=== PATIENT | female | born 1955 | race Caucasian/White ===

== ENCOUNTER 2017-11-17 04:23 | Emergency (ER) | END 2017-11-17 07:00 | disposition home or self-care (01) ==

== ENCOUNTER 2018-07-21 23:48 | Emergency (ER) | payer BC ==
[~2018-07-21] VITALS: Ht 154.9 cm; Wt 82.0 kg
[~2018-07-21 23:48] MED LIST: ASPI-535 PO; ATOR10TA65 PO; CLON0.5T14 PO; ERGO500013 PO; LOSA1TAB25 PO; METF-849 PO; METO-336 PO; ZOLP10TA5 PO
[2018-07-21 23:51] VITALS: Ht 154.9 cm; Wt 82.0 kg
[2018-07-22] MEDS ORDERED: ONDANSETRON 4 MG INJ IV STA (02:04)
--- NOTE | 2018-07-22 02:04 | ERD ---
ER Documentation Chief Complaint Chief Complaint BIB FAMILY HIGH BP AT HOME HPI The patient is a 63-year-old female, presenting to the ER because she took her blood pressure at 11 p.m., it was 180/107, she then took an additional dose of losartan prior to coming to emergency department. She felt nauseated and vomited once of mostly mucus, denies hematemesis/hematochezia. She denies fever, chills, neck pain, chest pain, dyspnea, complains of dysuria, denies diarrhea. She does not smoke nor drink Past medical history: Cholelithiasis, hypertension, diabetes mellitus Past surgical history: None ROS All systems reviewed and are negative except as per history of present illness. Medications Home Meds Active Scripts Ibuprofen* (Motrin*) 600 Mg Tab, 600 MG PO Q6H PRN for PAIN AND OR ELEVATED TEMP, #20 TAB Prov:MONTY MOCTEZUMA MD 07/22/18 Cephalexin* (Keflex*) 500 Mg Capsule, 500 MG PO QID for 7 Days, CAP Prov:MONTY MOCTEZUMA MD 07/22/18 Reported Medications Losartan-Hydrochlorothiazide (Losartan-HCTZ) 100-25 Mg Tab, 1 TAB PO DAILY, TAB 11/17/17 Atorvastatin Calcium (Atorvastatin Calcium) 10 Mg Tablet, 10 MG PO QHS, #30 TAB 11/17/17 Zolpidem Tartrate* (Zolpidem Tartrate*) 10 Mg Tablet, 10 MG PO QHS PRN for INSOMNIA, #30 TAB 11/17/17 Aspirin Ec (Aspir 81) 81 Mg Tablet.dr, 81 MG PO DAILY, #30 TAB 11/17/17 Metoprolol Succinate* (Toprol XL*) 100 Mg Tab.sr.24h, 100 MG PO DAILY, #30 TAB 11/17/17 Metformin* (Glucophage*) 500 Mg Tab, 500 MG PO WITH BREAKFAST DINNE, #30 TAB 11/17/17 Clonazepam* (Clonazepam*) 0.5 Mg Tablet, 0.5 MG PO DAILY, TAB 11/17/17 Ergocalciferol (Vitamin D2) (VITAMIN D2) 50,000 Unit Capsule, 38533 UNIT PO, CAP 11/17/17 Allergies Allergies: Coded Allergies: No Known Allergy (Unverified , 07/21/18) PMhx/Soc History of Surgery: No Anesthesia Reaction: No Hx Neurological Disorder: No Hx Respiratory Disorders: No Hx Cardiac Disorders: Yes (HTN) Hx Psychiatric Problems: No Hx Miscellaneous Medical Probl: Yes (DM, GALLSTONES) Hx Alcohol Use: No Hx Substance Use: No Hx Tobacco Use: No Smoking Status: Never smoker Physical Exam Vitals Vital Signs Date Temp Pulse Resp B/P (MAP) Pulse Ox O2 O2 Flow FiO2 Time Delivery Rate 07/22/18 67 15 124/74 96 Room Air 04:27 (91) 07/22/18 77 20 141/84 98 Room Air 01:53 (103) 07/22/18 171/87 00:29 (115) 149/86 (107) 07/21/18 98.4 83 20 137/86 95 23:51 (103) Physical Exam Const: No acute distress. Head: Atraumatic. Eyes: Normal Conjunctiva. ENT: Normal External Ears, Nose and Mouth. Neck: Full range of motion. No meningismus. Resp: Clear to auscultation bilaterally. Cardio: Regular rate and rhythm. Abd: Soft, non distended, normal bowel sounds, non tender. Skin: No petechiae or rashes. Back: No midline or flank tenderness. Ext: No cyanosis, or edema. Neur: Awake and alert. No focal deficit Psych: Normal Mood and Affect. Result Diagram: 07/22/184 07/22/18213 Results 24 hrs Laboratory Tests Test 07/22/18 02:14 07/22/18 02:30 White Blood Count 16.6 10^3/ul Red Blood Count 4.61 10^6/ul Hemoglobin 13.7 g/dl Hematocrit 39.9 % Mean Corpuscular Volume 86.6 fl Mean Corpuscular Hemoglobin 29.7 pg Mean Corpuscular Hemoglobin Concent 34.3 g/dl Red Cell Distribution Width 13.8 % Platelet Count 146 10^3/UL Mean Platelet Volume 10.0 fl Immature Granulocytes % 0.500 % Neutrophils % 87.6 % Lymphocytes % 6.2 % Monocytes % 5.2 % Eosinophils % 0.3 % Basophils % 0.2 % Nucleated Red Blood Cells % 0.0 /100WBC Immature Granulocytes # 0.080 10^3/ul Neutrophils # 14.5 10^3/ul Lymphocytes # 1.0 10^3/ul Monocytes # 0.9 10^3/ul Eosinophils # 0.1 10^3/ul Basophils # 0.0 10^3/ul Nucleated Red Blood Cells # 0.0 10^3/ul Sodium Level 142 mmol/L Potassium Level 4.3 mmol/L Chloride Level 104 mmol/L Carbon Dioxide Level 25 mmol/L Anion Gap 13 Blood Urea Nitrogen 23 mg/dl Creatinine 0.57 mg/dl Est Glomerular Filtrat Rate mL/min > 60 mL/min Glucose Level 242 mg/dl Calcium Level 9.4 mg/dl Total Bilirubin 0.6 mg/dl Direct Bilirubin 0.00 mg/dl Indirect Bilirubin 0.6 mg/dl Aspartate Amino Transf (AST/SGOT) 97 IU/L Alanine Aminotransferase (ALT/SGPT) 130 IU/L Alkaline Phosphatase 80 IU/L Total Protein 7.8 g/dl Albumin 4.3 g/dl Globulin 3.50 g/dl Albumin/Globulin Ratio 1.22 Lipase 59 U/L Bedside Urine pH (LAB) 6.0 Bedside Urine Protein (LAB) 2+ Bedside Urine Glucose (UA) Negative Bedside Urine Ketones (LAB) Trace Bedside Urine Blood 1+ Bedside Urine Nitrite (LAB) Negative Bedside Urine Leukocyte Esterase (L 2+ Current Medications Medications Dose Sig/Gorge Start Time Status Last (Trade) Ordered Route PRN Stop Time Admin Dose Reason Admin Ondansetron 4 mg ONCE STAT 07/22/18 DC 07/22/18 HCl (Zofran IV 02:04 02:19 Inj) 07/22/18 02:07 Ceftriaxone 50 ml @ ONCE ONCE 07/22/18 DC 07/22/18 Sodium 100 mls/hr IVPB 04:00 04:06 07/22/18 04:29 Procedures/MDM MEDICAL MAKING DECISION: The patient is a 63-year-old female, presenting with acute cystitis, was treated with Zofran 4 mg IV for nausea, urine culture requested, Rocephin IV for acute cystitis with good response, is stable for outpatient follow-up. Her blood pressure is improving and did not require any intervention The differential diagnoses considered include but are not limited to cholelithiasis, cholecystitis, choledocholithiasis, cholangitis, pancreatitis, hepatitis, gastritis, peptic ulcer disease, gastric ulcer, appendicitis, cystit is, diverticulitis, partial small bowel obstruction. Departure Diagnosis: Primary Impression: UTI (urinary tract infection) Condition: Good Comments I discussed the findings with the patient. I advised the patient to follow-up with her doctor in the morning, and return if any concern. Disclaimer: Inadvertent spelling and grammatical errors are likely due to EHR/dictation software use and do not reflect on the overall quality of patient care. Also, please note that the electronic time recorded on this note does not necessarily reflect the actual time of the patient encounter. MONTY MOCTEZUMA MD July 22, 2018 02:04
[2018-07-22] MEDS ORDERED: CEFTRIAXONE 1 GM/50 ML (PMX) 50 ML IVPB ONE (04:00)
[2018-07-22] MEDS ORDERED: IBUP-1542 PO (04:41)
[2018-07-22] MEDS ORDERED: CEPH-443 PO (04:41)
[2018-07-22 04:46] VITALS: BP 121/74; PULSE 71; RESP 15
== END 2018-07-22 04:50 | disposition home or self-care (01) ==
LOC: E/R 23:48
DX: N39.0 Urinary tract infection, site not specified (principal); E11.9 Type 2 diabetes mellitus without complications; I10 Essential (primary) hypertension; Z79.84 Long term (current) use of oral hypoglycemic drugs
CPT/HCPCS: 80053; 81003; 83690; 85025; 93005; J0696; J2405; 36415; 96374; 96375